=== PATIENT | male | born 1960 | race American Indian/Alaskan Native ===

== ENCOUNTER 2021-10-26 18:07 | Emergency (ER) | payer SELFPAY ==
[2021-10-26 18:34] VITALS: BP 157/80
== END 2021-10-27 18:57 | disposition left against medical advice (07) ==
LOC: ED 18:07
DX: M89.8X9 Other specified disorders of bone, unspecified site (principal); Z53.21 Procedure and treatment not carried out due to patient leaving prior to being seen by health care provider